=== PATIENT | female | born 1935 | race Caucasian/White ===

== ENCOUNTER → 2017-01-15 | Outpatient (CLI) | payer MEDICARE ==
[~2017-01-15] MED LIST: ACET325T9 PO; ASPI-630 PO; CHLO25TA PO; CRESTOR5 MG PO; DOCU-109 PO; INSU100I13 SQ; IOHEXOL 180 MG/ML 10 ML VIAL. ONE; LEVO88TA4 PO; LIRA0.6P2 SQ; MULT-208 PO; NIFE60TA16 PO; POTA10TA12 PO; methylPREDNISolone ACETATE 40 MG/ML VIAL. ONE; methylPREDNISolone ACETATE 80 MG/ML VIAL. ONE
--- NOTE | 2017-01-16 03:43 | PAIN ---
DATE OF SERVICE: 01/15/2017 INITIAL CONSULTATION FOR PAIN CLINIC CHIEF COMPLAINT: Low back and right lower extremity pain. HISTORY OF PRESENT ILLNESS: This is an 82-year-old female who presents with history of pain in the low back and right lower extremity for many years, worse over the past 2 years or so. The patient has recently had some radiofrequency ablation performed on the L4-L5 and L5-S1 levels at an outside clinic, reports some decrease in pain on the left side of her low back, but still significant pain in the right side and continued pain in the right lower extremity, the posterior gluteus, lateral thigh, anterior and medial thighs as well as into the medial lower leg on the right side. It is throbbing, constant, aching, worse during the day. The patient reports worse with standing and walking. She has been sleeping in a recliner to decrease the pain, as she is unable to lie flat. The patient reports even so it wakes her up 3-4 times a night with pain. The patient reports it does affect her bowel and bladder control. She has some increased frequency, but no loss of continence with the pain. She reports the patient is using a walker to ambulate. She has had no other recent physical therapies or other modalities except for some facet blocks and radiofrequency ablation, again which was somewhat helpful on the left low back, but not the right side or right leg with radicular pattern pain. The patient reports disability rate from 0-10, 10 being the worst, 8 with family and home responsibilities, recreation, social activity and occupation, 7 with self care and life support activities is 5 on a scale of 10. The patient reports no loss of motor function, but significant fatigability with her right lower extremity and again she is using a walker to ambulate. PAST MEDICAL HISTORY: Significant for diabetes with insulin dependency, hypothyroidism, quit smoking in 1979, history of hypertension, weight loss 25 pounds last year and history of arthritis. PREVIOUS SURGERY: Include coronary artery bypass graft in 2004, left carotid endarterectomy, tubal ligation, lumbar surgery in 1984 in [facility]. CURRENT MEDICATIONS: Include daily baby aspirin, Victoza, Tylenol, multivitamins, potassium, levothyroxine, Colace, nifedipine, chlorthalidone, Crestor and Lantus insulin. FAMILY HISTORY: Significant for no major medical problems or conditions that she is aware of. SOCIAL HISTORY: The patient does not smoke, does not drink alcohol. She is single. Lives on her own in an apartment locally in [place], [place]. REVIEW OF SYSTEMS: The patient's review of systems is positive for those items mentioned in history of present illness. All systems reviewed and otherwise negative. It is completed in full, well documented on the patient's chart. PHYSICAL EXAMINATION: VITAL SIGNS: Today blood pressure is 144/66, pulse 72, respirations 16, temperature is 98.1 degrees Fahrenheit. Height is 5 feet 3 inches, weight is 175 pounds. GENERAL: The patient is awake, alert, oriented, appropriate, very pleasant demeanor. HEENT: Head shows normocephalic, atraumatic. Extraocular movements are intact and symmetrical. The patient wears eye glasses. Oral cavity shows mucous membranes moist and pink. Dentition is intact. NECK: Shows anterior throat is supple without palpable lymphadenopathy noted. Swallow reflex is symmetrical. CHEST: Shows normal on inspection. Breath sounds are clear to auscultation bilaterally. HEART: Shows S1 and S2 clear. ABDOMEN: Soft, nontender, nondistended. No palpable organomegaly, no rebound or guarding demonstrated. BACK: The patient's back shows spine grossly in the midline. Normal appearing thoracic kyphosis and lumbar lordotic curvature. No previous bruises or lesions are noted. There is some midline scarring noted in the lumbar distribution, but with fairly good preservation of the lumbar lordotic curvature. Lumbar paraspinous muscle shows symmetrical on inspection, shows some tenderness with palpation bilaterally in the lumbar paraspinous musculature, right and left in the lower lumbar distribution. The patient shows good rotational motion; however, the lumbar spine, both laterally as well as extension and flexion without significant pain. The patient's lower extremities show deep tendon reflexes at 1+ in the patellar and tendo calcaneus tendons are equal. Motor exam is approximately 4 on a scale of 5 with right dorsiflexion, extension, quadriceps and hamstring flexion and 5/5 on the left. The patient does have some reddish cellulitis discoloration on the left calf and lateral aspect of the lower leg, but not on the right. No peripheral edema is noted bilaterally. Peripheral pulses are 1+ posterior tibial and dorsalis pedis pulses. No peripheral edema is noted. No clubbing or cyanosis is noted. The patient's straight leg raising noted to be positive on the right at about 45 degrees, decreased with knee flexion, left side is negative. Gaenslen's and Prabhu's maneuvers are grossly negative bilaterally. The patient is able to stand. It is difficult to try to stand on her toes and it is quite slow going from a sitting to standing position. The patient is using a walker to ambulate with a significant shuffling gait favoring the right lower extremity fairly significantly. IMPRESSION: 1. This is an 82-year-old female with about a 2-year history of increasing low back pain, right lower extremity pain with some radicular qualities. 2. CT scan of lumbar spine showing moderately severe multiple level degenerative changes with L3-L4 moderate broad based posterior disk protrusion, worse on the right with associated central spinal stenosis as well as moderate foraminal encroachment bilaterally L2-L3 showing broad-based posterior disk bulging on the right as well causing central stenosis and moderate inferior foraminal narrowing, worse on the right as well. 3. Diabetes. 4. Hypertension. 5. Arthritis. PLAN: Options were discussed with the patient including conservative medical management with physical therapy, interventional techniques. She would like to pursue interventional techniques since she has had some success with this in the past. We discussed lumbar epidural steroid injection using description as well models to describe the procedure in a transforaminal approach. Risks were then discussed including, but not limited to bleeding, infection, possibility of intravascular injection sequelae, spread of local anesthetic and numbness, epidural hematoma and subsequent neurological compromise, dural punctures, headaches, spinal cord and/or nerve damage, side effects of steroid medication and possible ischemia to the nerve root involved with arterial obstruction and permanent damage as well as poor results regarding pain control, exposure to fluoroscopy. The patient understands and wishes to proceed. The patient will return to clinic in approximately 2 weeks for followup, was counseled on return appointment, activity level and side effects to be aware of. DIAGNOSES: Lumbar radiculopathy with lumbar degenerative disk disease and post-lumbar laminectomy syndrome. PROCEDURE: Right-sided L3-L4 transforaminal injection using C-arm fluoroscopic guidance under sterile prep and drape using local anesthetic. 22-gauge Valentina tipped needle with stylet with negative aspiration throughout including digital subtraction with C-arm fluoroscopy. MEDICATION INJECTED: A total of 80 mg of Depo-Medrol plus 2 mL of 0.25% bupivacaine and 1.5 mL of ____ for contrast. The patient tolerated the procedure well, had no complications. The patient will return to clinic in approximately 2 weeks for followup, was counseled on return appointment, activity level and side effects to be aware of. DIANA WATTS MD DR: RACHELLE/madyson JOB#: [id number] / [id number] TWYLA Coyne MD
== END | disposition home or self-care (01) ==
LOC: PNCL 08:06
PROVIDERS: ATTEND Anesthesiology
DX: M51.16 Intervertebral disc disorders with radiculopathy, lumbar region (principal); M96.1 Postlaminectomy syndrome, not elsewhere classified; I10 Essential (primary) hypertension; M19.90 Unspecified osteoarthritis, unspecified site; E08.9 Diabetes mellitus due to underlying condition without complications; E03.9 Hypothyroidism, unspecified; Z87.891 Personal history of nicotine dependence; Z79.82 Long term (current) use of aspirin
CPT/HCPCS: 64483; J1030; J1040

== ENCOUNTER → 2017-01-29 | Outpatient (CLI) | payer MEDICARE ==
[~2017-01-29] MED LIST changes: -IOHEXOL 180 MG/ML 10 ML VIAL. ONE; -methylPREDNISolone ACETATE 40 MG/ML VIAL. ONE; -methylPREDNISolone ACETATE 80 MG/ML VIAL. ONE
--- NOTE | 2017-01-29 10:31 | PN ---
DATE: 01/29/2017 PROGRESS NOTE FOR PAIN CLINIC DIAGNOSES: Lumbar radiculopathy with lumbar degenerative disk disease and post-lumbar laminectomy syndrome. HISTORY OF PRESENT ILLNESS: The patient is an 82-year-old female who returns for followup status post right transforaminal injection at the L3-L4 level on 01/15/2017. The patient reports she did very well, about 80% improvement. He is doing much better. He is very pleased with the progress. No significant pain into the right lower extremity anymore, just minor pain in the back, which she reports is very tolerable. She is sleeping well at night, still sleeping in a recliner, but still sleeps 7-8 hours without difficulty. The patient reports she is very happy with her progress. Her pain is a 2-3 on a scale of 10. It is a 2 currently. is a dull aching pain in the back. No pain in the leg. The patient reports no new motor or sensory deficits, no new bowel or bladder incontinence or other complaints. PHYSICAL EXAMINATION: VITAL SIGNS: The patient's blood pressure is 157/70, pulse 67, respirations 18, temperature 97.8 degrees Fahrenheit, weight is 178 pounds. GENERAL: The patient is awake, alert, oriented, appropriate, has a very pleasant demeanor. HEENT: Head shows normocephalic, atraumatic. Extraocular movements are intact, symmetrical. Oral cavity has mucous membranes are moist and pink. Dentition is intact. NECK: Shows anterior throat supple without palpable lymphadenopathy noted. Swallow reflex is symmetrical. CHEST: Shows normal on inspection. Breath sounds are clear to auscultation bilaterally. HEART: Shows S1 and S2 clear. ABDOMEN: Soft, nontender, nondistended. No palpable organomegaly. There is no rebound or guarding demonstrated. BACK: The patient's back shows spine grossly in the midline. Slight exaggeration of thoracic kyphosis and mild flattening of lumbar lordotic curvature. Lumbar paraspinous muscle shows some mild tenderness only in the inferior aspect of the lumbar paraspinous musculature and only diffusely tender with palpation, but without radiation. The patient has good rotational motion as well as extension and flexion. EXTREMITIES: Lower extremities showed deep tendon reflexes 1+ in the patellar and tendo calcaneus tendons. Motor exam is approximately 4 on a scale of 5 with right dorsiflexion and extension and 5/5 on the left. PLAN: Options were discussed with the patient. We will hold on any further injections as she is doing quite well. At this time, we would like to wait on any further treatment. The patient was encouraged to increase her activity as tolerated. We will call the clinic for followup if necessary. DIANA WATTS MD DR: RACHELLE/madyson JOB#: [id number] / [id number]
== END | disposition home or self-care (01) ==
LOC: PNCL 14:13
PROVIDERS: ATTEND Anesthesiology
DX: M54.16 Radiculopathy, lumbar region (principal); M51.36 Other intervertebral disc degeneration, lumbar region
CPT/HCPCS: G0463